=== PATIENT | female | born 1955 | race Caucasian/White ===

== ENCOUNTER 2018-10-12 16:40 | Observation (INO) | payer BC ==
[2018-10-12] MEDS ORDERED: SODIUM CHLORIDE 0.9% 1,000 ML IV ONE (17:01)
[2018-10-12] MEDS ORDERED: ONDANSETRON 4 MG/2 ML VIAL IVP STA (17:01)
[2018-10-12] MEDS ORDERED: HYDROmorphone 1 MG/ML CARPUJECT IVP STA (17:01)
--- NOTE | 2018-10-12 17:11 | ED Physician Documentation ---
PD HPI ABD PAIN - Stated complaint Stated Complaint: ABD PX - Chief complaint Chief Complaint: Abd Pain - History obtained from History obtained from: Patient - History of Present Illness Timing - onset: Yesterday Timing - duration: Days (2) Timing - details: Gradual onset Pain level max: 10 Pain level now: 10 Quality: Aching, Pain Location: RUQ Improved by: Other (nothing) Worsened by: Eating, Palpation Associated symptoms: Nausea, Vomiting. No: Diarrhea, Constipation, Melena, Hematochezia Similar symptoms before: Has not had sx before Recently seen: Not recently seen - Additional information Additional information: RUQ abd pain since yesterday. no fevers. no abd surgeries. no similar symptoms in the past. Review of Systems Ten Systems: 10 systems reviewed and negative Constitutional: denies: Fever, Chills Respiratory: denies: Cough GI: reports: Abdominal Pain, Nausea, Vomiting. denies: Diarrhea Skin: denies: Rash Musculoskeletal: denies: Neck pain, Back pain Neurologic: denies: Headache PD PAST MEDICAL HISTORY - Past Medical History Past Medical History: Yes Other Past Medical History: osteoporosis - Past Surgical History Past Surgical History: No - Present Medications Home Medications: Ambulatory Orders Medication Instructions Recorded Confirmed Alendronate [Fosamax] 70 mg PO OAW 10/12/18 Biotin 5,000 mcg PO DAILY 10/12/18 Calcium Citrate 200 mg PO DAILY 10/12/18 Cholecalciferol (Vitamin D3) 4,000 unit PO DAILY 10/12/18 [Vitamin D] Glucosamine/D3/Boswellia Rena 1 tab PO DAILY 10/12/18 [Osteo Bi-Flex Tablet] [place]-3/Dha/Epa/Fish Oil [Fish Oil 1,000 mg PO DAILY 10/12/18 1,000 mg Softgel] - Allergies Allergies/Adverse Reactions: Allergies Allergy/AdvReac Type Severity Reaction Status Date / Time Sulfa (Sulfonamide Allergy Hives Verified 10/12/18 16:52 Antibiotics) Penicillins AdvReac Unknown Verified 10/12/18 16:52 - Living Situation Living Situation: reports: With family Living Arrangement: reports: At home - Social History Does the pt have substance abuse?: No - Family History Family history: reports: Non contributory PD ED PE NORMAL - Vitals Vital signs reviewed: Yes - General General: Alert and oriented X 3, No acute distress, Well developed/nourished - HEENT HEENT: PERRL, Moist mucous membranes - Neck Neck: Supple, no meningeal sign - Cardiac Cardiac: RRR - Respiratory Respiratory: No respiratory distress, Clear bilaterally - Abdomen Abdomen: Soft, Non distended, Other - Back Back: No spinal TTP - Derm Derm: Warm and dry - Neuro Neuro: Alert and oriented X 3 - Psych Psych: Normal mood, Normal affect Results - Vitals Vitals: Vital Signs - 24 hr 10/12/18 16:49 Temperature 36.5 C Heart Rate 132 H Respiratory 18 Rate Blood Pressure 132/58 H O2 Saturation 95 Oxygen O2 Source Room air - Labs Labs: Laboratory Tests 10/12/18 10/12/18 17:50 17:50 WBC 27.9 H RBC 5.63 H Hgb 16.8 H Hct 49.4 H MCV 87.7 MCH 29.8 MCHC 34.0 RDW 14.2 Plt Count 168 MPV 10.2 Neut # (Auto) Not Reportable Lymph # (Auto) Not Reportable [place] # (Auto) Not Reportable Eos # (Auto) Not Reportable Baso # (Auto) Not Reportable Absolute Nucleated RBC Not Reportable Total Counted 100 Band Neuts % (Manual) 6 Abnorm Lymph % (Manual) 0 Nucleated RBC % Not Reportable Neutrophils # (Manual) 24.3 H Lymphocytes # (Manual) 3.1 Monocytes # (Manual) 0.6 Eosinophils # (Manual) 0.0 Basophils # (Manual) 0.0 Differential Comment MANUAL DIFFERENTIAL Manual Slide Review Indicated WBC Morphology NORMAL APPEARANCE Platelet Estimate NORMAL (130-450,000) Platelet Morphology NORMAL APPEARANCE RBC Morph Micro Appear NORMAL APPEARANCE Sodium 134 L Potassium 3.7 Chloride 99 L Carbon Dioxide 22 Anion Gap 13.0 BUN 27 H Creatinine 1.1 H Estimated GFR (MDRD) 50 L Glucose 142 H Calcium 8.9 Total Bilirubin 1.1 H AST 50 H ALT 59 Alkaline Phosphatase 64 Total Protein 9.0 H Albumin 4.6 Globulin 4.4 H Albumin/Globulin Ratio 1.0 Lipase 38 - Rads (name of study) RUQ US Radiology: Prelim report reviewed, EMP read contemporaneously, See rad report (Dilated gallbladder with thickened wall, multiple gallstones and sludge. These are findings raising suspicion for cholecystitis. However, ultrasound Peng's sign is negative, but can be false negative in the setting of pain medication or diabetes. ) PD MEDICAL DECISION MAKING - ED course Complexity details: reviewed results, re-evaluated patient, considered differential, d/w patient, d/w distributor sales consultant ED course: 63-year-old female presents to the emergency department with abdominal pain and vomiting. Found to have acute cholecystitis. Given IV fluids as well as cefoxitin given her penicillin allergy. Discussed the case with Dr. Yap, surgery on-call who came and evaluated the patient and will place in observation for rehydration, IV antibiotics and plan for the operating room in the morning. This document was made in part using voice recognition software. While efforts are made to proofread this document, sound alike and grammatical errors may occur. Departure - Departure Disposition: ED Place in Observation Clinical Impression: Acute cholecystitis Condition: Stable Discharge Date/Time: 10/12/18 20:05
--- NOTE | 2018-10-12 17:54 | Ultrasound Report ---
Reason: RUQ pain, vomiting Procedure Date: 10/12/2018 Accession Number: [id number] / [id number] Procedure: US - Abdomen Limited CPT Code: FULL RESULT: EXAM: ABDOMEN ULTRASOUND LIMITED, RUQ EXAM DATE: 10/12/2018 05:44 PM. CLINICAL HISTORY: RUQ pain, vomiting. COMPARISON: None. TECHNIQUE: Real-time scanning was performed with static images obtained. FINDINGS: Liver: Normal in size and echotexture. 12.7 cm. Main portal vein flow: Hepatopetal. Gallbladder: The gallbladder appears distended. There are multiple gallstones and gallbladder sludge. Gallbladder wall thickness is 8 mm. Negative ultrasound Peng's sign. Biliary System: CBD measures 3.9 mm. No intrahepatic or extrahepatic ductal dilatation. Other: Right kidney appears echogenic. No hydronephrosis of right kidney. Right kidney measures 9.3 cm in length. IMPRESSION: 1. Dilated gallbladder with thickened wall, multiple gallstones and sludge. These are findings raising suspicion for cholecystitis. However, ultrasound Peng's sign is negative, but can be false negative in the setting of pain medication or diabetes. RADIA
[2018-10-12 18:02] LABS: BASOPHILS % (AUTO) 0.4 %; HGB - HEMOGLOBIN 16.8 g/dL (12.0-16.0); LYMPHOCYTES % (AUTO) 6.4 %; MEAN CORPUSCULAR HEMOGLOBIN 29.8 pg (27.0-31.0); MEAN CORPUSCULAR VOLUME 87.7 fL (81.0-99.0); MEAN PLATELET VOLUME 10.2 fL (7.9-10.8); MONOCYTES % (AUTO) 7.1 %; NEUTROPHILS % (AUTO) 86.1 %; PLT - PLATELET COUNT 168 10^3/uL (130-450); RED BLOOD COUNT 5.63 10^6/uL (4.20-5.40); RED CELL DISTRIBUTION WIDTH 14.2 % (12.0-15.0); WHITE BLOOD COUNT 27.9 x10^3/uL (4.8-10.8)
[2018-10-12 18:06] LABS: ABNORMAL LYMPHS % (MANUAL) 0 %
[2018-10-12] MEDS ORDERED: cefOXitin 2 GM in SODIUM CHLORIDE 0.9% MINIBAG 100 ML IV STA (18:12)
[2018-10-12 18:19] LABS: BAND NEUTROPHILS % (MANUAL) 6 %; DIFFERENTIAL COMMENT MANUAL DIFFERENTIAL; LYMPHOCYTES # (MANUAL) 3.1 10^3/uL (1.5-3.5); LYMPHOCYTES % (MANUAL) 11 %; MONOCYTES # (MANUAL) 0.6 10^3/uL (0.0-1.0); NEUTROPHILS # (MANUAL) 24.3 10^3/uL (1.5-6.6); NEUTROPHILS % (MANUAL) 81 %; PLATELET ESTIMATE, MANUAL NORMAL (130-450,000) (NORMAL); PLATELET MORPHOLOGY NORMAL APPEARANCE (NORMAL); RBC MORPHOLOGY (MULTIPLE) NORMAL APPEARANCE (NORMAL)
[2018-10-12 18:20] LABS: ALBUMIN 4.6 g/dL (3.2-5.5); BILIRUBIN,TOTAL 1.1 mg/dL (0.2-1.0); CALCIUM 8.9 mg/dL (8.5-10.3); CREATININE 1.1 mg/dL (0.4-1.0)
[2018-10-12] MEDS ORDERED: ONDANSETRON 4 MG/2 ML VIAL IVP PRN (19:10)
[2018-10-12] MEDS ORDERED: ACETAMINOPHEN 1,000 MG/100 ML 100 ML IV PRN (19:10)
[2018-10-12] MEDS ORDERED: MORPHINE 2 MG/ML CARPUJECT IVP PRN (19:10)
--- NOTE | 2018-10-12 19:32 | CONSULTATION NOTE ---
Referring Provider Name of Referring Provider:: Dr. Wills Consult Date: 10/12/18 Chief Complaint - Chief Complaint Chief Complaint: abd pain History of Present Illness - Admitted From Admitted From:: ER - History Obtained From Records Reviewed: yes History obtained from: pt, records Exam Limitations: none - History of Present Illness HPI Comment/Other: 63 yo female with abrupt onset of mid epigastric pain, N/V of nonbloody material yesterday morning. Sx persisted until yesterday evening when pain became localized to the RUQ, was sharp and stabbing in nature and exacerbated by movement and deep breathing. Today the RUQ pain has persisted but there has been no further N/V. No fever/chills, change in bowel habits, melena, BRBPR, jaundice or acholic stools, hx previous similar sx. She has a hx of chronic food intolerances of gluten and lactose. She reports a remote hx of ulcerative colitis which resolved with a gluten free and lactose free diet, per pt. A colonoscopy earlier this year was reportedly nl. She has a FH gallbladder disease in her mother and sister. No recent wt changes or hx of hepatitis or jaundice. She reports minimal oral intake today and came in for evaluation this evening due to no improvement in her sx. Evaluation in the ER included an US showing a dilated gall bladder with stones and sludge, a thickened gallbladder wall, and nl bile ducts; sono Peng's sign was reportedly neg. No hx heartburn, dysphagia or PUD. NSAID use: occasional ibuprofen. Surgical consultation was requested. History - Past Medical History Cardiovascular: reports: None Respiratory: reports: None Neuro: reports: None Endocrine/Autoimmune: reports: Other (hx mild thrombocytopenia) GI: reports: Ulcerative colitis DISABILITY MANAGER: reports: None : reports: None Psych: reports: None Musculoskeletal: reports: Other (occasional tendonitis) MRSA Hx?: No Other Past Medical History: osteoporosis - Past Surgical History /DISABILITY MANAGER: reports: Tubal ligation, Other (breast biopsy x 2) HEENT: reports: Tonsil/Adenoidectomy - Family & Social History Family History Comment/Other: + gallbladder disease in mother and sister Living arrangement: At home Living Situation: Alone (daughter lives nearby; ), With family Social History Notes: moved from [place] to [place] this summer - Substance History Use: Uses substance without health or social issues: NONE Meds/Allgy - Home Medications Home Medications: Ambulatory Orders Medication Instructions Recorded Confirmed Alendronate [Fosamax] 70 mg PO OAW 10/12/18 Biotin 5,000 mcg PO DAILY 10/12/18 Calcium Citrate 200 mg PO DAILY 10/12/18 Cholecalciferol (Vitamin D3) 4,000 unit PO DAILY 10/12/18 [Vitamin D] Glucosamine/D3/Boswellia Rena 1 tab PO DAILY 10/12/18 [Osteo Bi-Flex Tablet] [place]-3/Dha/Epa/Fish Oil [Fish Oil 1,000 mg PO DAILY 10/12/18 1,000 mg Softgel] - Allergies Allergies/Adverse Reactions: Allergies Allergy/AdvReac Type Severity Reaction Status Date / Time Sulfa (Sulfonamide Allergy Hives Verified 10/12/18 16:52 Antibiotics) Penicillins AdvReac Unknown Verified 10/12/18 16:52 Review of Systems - Constitutional Constitutional: reports: Poor appetite. denies: Fever, Chills, Weakness, Weight gain, Weight loss - Cardiovascular Cariovascular: denies: Irregular heart rate, Palpitations, Chest pain - Respiratory Respiratory: denies: Cough - Gastrointestinal Gastrointestinal: reports: Abdominal pain, Nausea, Vomiting, Poor appetite. denies: Abdominal distention, Constipation, Diarrhea, Change in bowel habits, Black stools, Bloody stools, Tomer blood emesis, Coffee grounds emesis, Reflux/heartburn - Genitourinary Genitourinary: denies: Dysuria - Musculoskeletal Musculoskeletal: denies: Back pain - Hematologic/Lymphatic Hematologic/Lymphatic: denies: Blood clots, Bleeding tendencies - All Other Systems All Other Systems: reports: Reviewed and negative Exam - Vital Signs Reviewed Vital Signs: Yes Vital Signs: Vital Signs x48h Temp Pulse Resp BP Pulse Ox 10/12/18 19:23 94 18 118/73 94 10/12/18 16:49 36.5 C 132 H 18 132/58 H 95 - Physical Exam General Appearance: positive: Alert, Moderate distress Eyes Bilateral: positive: Conjunctivae nml, No scleral icterus ENT: positive: Dry mucous membranes Neck: positive: Nml inspection, Thyroid nml, No JVD. negative: Lymphadenopathy (R), Lymphadenopathy (L) Respiratory: positive: Chest non-tender, No respiratory distress, Rales (dry rales in right base) Cardiovascular: positive: Regular rate & rhythm, No murmur, No gallop Abdomen: positive: Nml bowel sounds, No distention, Guarding (RUQ tenderness/guarding and +Peng's sign). negative: Hepatomegaly, Splenomegaly Skin: positive: Color nml, No rash, Warm, Dry Extremities: positive: Nml appearance, No pedal edema. negative: Calf tenderness Neurologic/Psychiatric: positive: Oriented x3 Conclusion/Plan - Diagnosis Diagnosis: Acute calculous cholecystitis. Moderate volume depletion due to above - Plan Plan: Admission, IVF, broad spectrum parenteral antibiotic therapy; lap kristie in am; PAR conference with pt, including risks of bleeding, infection, and bile duct injury discussed and consent obtained. - Lab Results Lab results reviewed: Yes Fish Bones: 10/12/18 17:50 10/12/18 17:50 Other Lab Results: LFT's nl ex total bili 1.1 and AST 50; lipase nl - Diagnostic Imaging Results Diagnostic Imaging Results: positive: Final report reviewed Diagnostic Imaging Results Comments: See HPI
[2018-10-12] MEDS ORDERED: LACTATED RINGERS 1,000 ML IV SCH (20:00)
[2018-10-12] MEDS: ENOXAPARIN 40 MG/0.4 ML SYRINGE SUBQ SCH (20:32)
[2018-10-12] MEDS: CIPROFLOXACIN 400 MG/200 ML 200 ML IV SCH (20:33)
[2018-10-12] MEDS ORDERED: metroNIDAZOLE 500 MG/100 ML 500 MG/100 ML BAG IV SCH (21:00)
[2018-10-12 21:02] LABS: BILIRUBIN,URINE NEGATIVE (NEGATIVE); CLARITY,URINE HAZY (CLEAR); GLUCOSE, URINE (UA) NEGATIVE (NEGATIVE); KETONES,URINE (UA) TRACE mg/dL (NEGATIVE); LEUKOCYTE ESTERASE, URINE SMALL (NEGATIVE); NITRITE,URINE NEGATIVE (NEGATIVE); OCCULT BLOOD,URINE MODERATE (NEGATIVE); PH,URINE 5.5 PH (5.0-7.5); PROTEIN,URINE >=300 mg/dL (NEGATIVE); UROBILINOGEN,URINE 0.2 (NORMAL) E.U./dL (NORMAL)
[2018-10-12] MEDS: KETOROLAC 15 MG/ML VIAL IVP PRN (21:02)
[2018-10-12 21:25] LABS: SQUAMOUS EPITHELIAL CELL,UR MANY Squamous (<= Few)
[2018-10-12 21:26] LABS: AMORPHOUS SEDIMENT,UR Few /LPF; BACTERIA,URINE Rare /HPF (None Seen); CASTS, URINE 11-25 Hyaline Casts /LPF
[2018-10-12] MEDS: metroNIDAZOLE 500 MG/100 ML 500 MG/100 ML BAG IV SCH (21:57)
[2018-10-13] MEDS: SODIUM CHLORIDE FLUSH 0.9% 10 ML SYRINGE IVP SCH ×3 (00:02→16:41)
[2018-10-13] MEDS: metroNIDAZOLE 500 MG/100 ML 500 MG/100 ML BAG IV SCH ×4 (04:26→22:56)
[2018-10-13] MEDS: KETOROLAC 15 MG/ML VIAL IVP PRN (04:26)
[2018-10-13 05:28] LABS: BASOPHILS # (AUTO) 0.1 10^3/uL (0.0-0.1); BASOPHILS % (AUTO) 0.6 %; HGB - HEMOGLOBIN 13.7 g/dL (12.0-16.0); LYMPHOCYTES # (AUTO) 1.9 10^3/uL (1.5-3.5); MEAN CORPUSCULAR HEMOGLOBIN 29.3 pg (27.0-31.0); MEAN CORPUSCULAR HGB CONC 32.7 g/dL (32.0-36.0); MEAN CORPUSCULAR VOLUME 89.6 fL (81.0-99.0); MEAN PLATELET VOLUME 10.8 fL (7.9-10.8); MONOCYTES # (AUTO) 1.2 10^3/uL (0.0-1.0); NEUTROPHILS # (AUTO) 12.3 10^3/uL (1.5-6.6); NEUTROPHILS % (AUTO) 79.4 %; PLT - PLATELET COUNT 128 10^3/uL (130-450); RED BLOOD COUNT 4.67 10^6/uL (4.20-5.40); RED CELL DISTRIBUTION WIDTH 14.2 % (12.0-15.0); WHITE BLOOD COUNT 15.5 x10^3/uL (4.8-10.8)
[2018-10-13 05:33] LABS: CALCIUM 7.7 mg/dL (8.5-10.3); CREATININE 0.9 mg/dL (0.4-1.0)
--- NOTE | 2018-10-13 06:58 | PROVIDER PROGRESS NOTE ---
Subjective - Prog Note Date Prog Note Date: 10/13/18 Prog Note Time: 06:54 - Subjective Pt reports feeling: Improved (pain improved but persists; no n/v; voiding well) Objective - Vital Signs/Intake & Output Reviewed Vital Signs: Yes Vital Signs: Vital Signs x48h Temp Pulse Resp BP Pulse Ox 10/13/18 05:02 17 102/57 L 10/13/18 04:38 36.7 C 75 16 89/53 L 93 10/13/18 00:16 36.6 C 80 16 98/57 L 96 Intake & Output: Intake & Output 10/10/18 10/11/18 10/12/18 10/13/18 23:59 23:59 23:59 23:59 Intake Total 1420 Output Total 200 325 Balance 1220 -325 - Objective General Appearance: positive: Alert, Mild distress Eyes Bilateral: positive: No scleral icterus ENT: positive: No signs of dehydration Neck: positive: No JVD Respiratory: positive: No respiratory distress, Breath sounds nml. negative: Wheezes, Rales, Rhonchi Cardiovascular: positive: Regular rate & rhythm, No murmur, No gallop Abdomen: positive: Tenderness (RUQ with + Peng's sign; somewhat less tender than last night) Skin: positive: Color nml, No rash, Warm, Dry Extremities: positive: No pedal edema. negative: Calf tenderness Neurologic/Psychiatric: positive: Oriented x3 - Lab Results Fish Bones: 10/13/18 05:05 10/13/18 05:05 Other Labs: Lab Results x24hrs 10/13/18 10/13/18 10/12/18 Range/Units 05:05 05:05 20:50 WBC 15.5 H (4.8-10.8) x10^3/uL RBC 4.67 (4.20-5.40) 10^6/uL Hgb 13.7 (12.0-16.0) g/dL Hct 41.9 (37.0-47.0) % MCV 89.6 (81.0-99.0) fL MCH 29.3 (27.0-31.0) pg MCHC 32.7 (32.0-36.0) g/dL RDW 14.2 (12.0-15.0) % Plt Count 128 L (130-450) 10^3/uL MPV 10.8 (7.9-10.8) fL Neut # (Auto) 12.3 H Lymph # (Auto) 1.9 [place] # (Auto) 1.2 H Eos # (Auto) 0.0 Baso # (Auto) 0.1 Absolute Nucleated RBC 0.00 Total Counted Band Neuts % (Manual) (0 - 10) % Abnorm Lymph % (Manual) % Nucleated RBC % 0.0 Neutrophils # (Manual) (1.5-6.6) 10^3/uL Lymphocytes # (Manual) (1.5-3.5) 10^3/uL Monocytes # (Manual) (0.0-1.0) 10^3/uL Eosinophils # (Manual) (0-0.7) 10^3/uL Basophils # (Manual) (0-0.1) 10^3/uL Differential Comment Manual Slide Review WBC Morphology (NORMAL) Platelet Estimate (NORMAL) Platelet Morphology (NORMAL) RBC Morph Micro Appear (NORMAL) Sodium 135 (135-145) mmol/L Potassium 3.5 (3.5-5.0) mmol/L Chloride 102 (101-111) mmol/L Carbon Dioxide 24 (21-32) mmol/L Anion Gap 9.0 (6-13) BUN 27 H (6-20) mg/dL Creatinine 0.9 (0.4-1.0) mg/dL Estimated GFR (MDRD) 63 L (>89) Glucose 108 H (70-100) mg/dL Calcium 7.7 L (8.5-10.3) mg/dL Total Bilirubin (0.2-1.0) mg/dL AST (10-42) IU/L ALT (10-60) IU/L Alkaline Phosphatase (42-121) IU/L Total Protein (6.7-8.2) g/dL Albumin (3.2-5.5) g/dL Globulin (2.1-4.2) g/dL Albumin/Globulin Ratio (1.0-2.2) Lipase (22-51) U/L Urine Color YELLOW Urine Clarity HAZY (CLEAR) Urine pH 5.5 (5.0-7.5) PH Ur Specific [place] >=1.030 H (1.002-1.030) Urine Protein >=300 H (NEGATIVE) mg/dL Urine Glucose (UA) NEGATIVE (NEGATIVE) mg/dL Urine Ketones TRACE (NEGATIVE) mg/dL Urine Occult Blood MODERATE H (NEGATIVE) Urine Nitrite NEGATIVE (NEGATIVE) Urine Bilirubin NEGATIVE (NEGATIVE) Urine Urobilinogen 0.2 (NORMAL) (NORMAL) E.U./dL Ur Leukocyte Esterase SMALL H (NEGATIVE) Urine RBC 6-10 H (0-5) /HPF Urine WBC 11-25 H (0-5) /HPF Ur Squamous Epith Cells MANY Squamous H (<= Few) Amorphous Sediment Few /LPF Urine Bacteria Rare (None Seen) /HPF Urine Casts 11-25 Hyaline Casts /LPF Ur Microscopic Review INDICATED Urine Culture Comments NOT INDICATED 10/12/18 10/12/18 Range/Units 17:50 17:50 WBC 27.9 H (4.8-10.8) x10^3/uL RBC 5.63 H (4.20-5.40) 10^6/uL Hgb 16.8 H (12.0-16.0) g/dL Hct 49.4 H (37.0-47.0) % MCV 87.7 (81.0-99.0) fL MCH 29.8 (27.0-31.0) pg MCHC 34.0 (32.0-36.0) g/dL RDW 14.2 (12.0-15.0) % Plt Count 168 (130-450) 10^3/uL MPV 10.2 (7.9-10.8) fL Neut # (Auto) Not Reportable Lymph # (Auto) Not Reportable [place] # (Auto) Not Reportable Eos # (Auto) Not Reportable Baso # (Auto) Not Reportable Absolute Nucleated RBC Not Reportable Total Counted 100 Band Neuts % (Manual) 6 (0 - 10) % Abnorm Lymph % (Manual) 0 % Nucleated RBC % Not Reportable Neutrophils # (Manual) 24.3 H (1.5-6.6) 10^3/uL Lymphocytes # (Manual) 3.1 (1.5-3.5) 10^3/uL Monocytes # (Manual) 0.6 (0.0-1.0) 10^3/uL Eosinophils # (Manual) 0.0 (0-0.7) 10^3/uL Basophils # (Manual) 0.0 (0-0.1) 10^3/uL Differential Comment MANUAL DIFFERENTIAL Manual Slide Review Indicated WBC Morphology NORMAL APPEARANCE (NORMAL) Platelet Estimate NORMAL (130-450,000) (NORMAL) Platelet Morphology NORMAL APPEARANCE (NORMAL) RBC Morph Micro Appear NORMAL APPEARANCE (NORMAL) Sodium 134 L (135-145) mmol/L Potassium 3.7 (3.5-5.0) mmol/L Chloride 99 L (101-111) mmol/L Carbon Dioxide 22 (21-32) mmol/L Anion Gap 13.0 (6-13) BUN 27 H (6-20) mg/dL Creatinine 1.1 H (0.4-1.0) mg/dL Estimated GFR (MDRD) 50 L (>89) Glucose 142 H (70-100) mg/dL Calcium 8.9 (8.5-10.3) mg/dL Total Bilirubin 1.1 H (0.2-1.0) mg/dL AST 50 H (10-42) IU/L ALT 59 (10-60) IU/L Alkaline Phosphatase 64 (42-121) IU/L Total Protein 9.0 H (6.7-8.2) g/dL Albumin 4.6 (3.2-5.5) g/dL Globulin 4.4 H (2.1-4.2) g/dL Albumin/Globulin Ratio 1.0 (1.0-2.2) Lipase 38 (22-51) U/L Urine Color Urine Clarity (CLEAR) Urine pH (5.0-7.5) PH Ur Specific [place] (1.002-1.030) Urine Protein (NEGATIVE) mg/dL Urine Glucose (UA) (NEGATIVE) mg/dL Urine Ketones (NEGATIVE) mg/dL Urine Occult Blood (NEGATIVE) Urine Nitrite (NEGATIVE) Urine Bilirubin (NEGATIVE) Urine Urobilinogen (NORMAL) E.U./dL Ur Leukocyte Esterase (NEGATIVE) Urine RBC (0-5) /HPF Urine WBC (0-5) /HPF Ur Squamous Epith Cells (<= Few) Amorphous Sediment /LPF Urine Bacteria (None Seen) /HPF Urine Casts /LPF Ur Microscopic Review Urine Culture Comments ABX Reporting Has patient been on IV antibiotics over the past 48 hours?: No Assessment/Plan - Problem List (1) Acute cholecystitis Impression: Clinically improving; plan: danielle flowers this am.
[2018-10-13 07:27] LABS: ALBUMIN 3.2 g/dL (3.2-5.5); BILIRUBIN,TOTAL 1.6 mg/dL (0.2-1.0); CALCIUM 7.6 mg/dL (8.5-10.3); TOTAL PROTEIN 6.5 g/dL (6.7-8.2)
[2018-10-13] MEDS ORDERED: BUPIVACAINE 0.5%-EPI 1:200000 PF 30 ML VIAL ONE (07:33)
[2018-10-13] MEDS: ENOXAPARIN 40 MG/0.4 ML SYRINGE SUBQ SCH (07:43)
--- NOTE | 2018-10-13 08:09 | ANESTHESIA ---
Pre-Anesthesia VS, & Labs - Diagnosis Diagnosis Acute calculous cholecystitis Moderate volume depletion due to above - Procedure Lap cholecystectomy Vital Signs: Temp Pulse Resp BP Pulse Ox 36.7 C 75 17 102/57 L 93 10/13/18 04:38 10/13/18 04:38 10/13/18 05:02 10/13/18 05:02 10/13/18 04:38 Height 5 ft 4 in Weight (kg) 63 kg Body Mass Index 23.8 - Is Patient ?: No - Lab Results Current Lab Results: Laboratory Tests 10/13/18 07:10: Sodium 134 L, Potassium 3.8, Chloride 101, Carbon Dioxide 26, Anion Gap 7.0, BUN 27 H, Creatinine 1.0, Estimated GFR (MDRD) 56 L, Glucose 105 H, Calcium 7.6 L, Total Bilirubin 1.6 H, AST 81 H, ALT 73 H, Alkaline Phosph atase 62, Total Protein 6.5 L, Albumin 3.2, Globulin 3.3, Albumin/Globulin Ratio 1.0 10/13/18 05:05: Sodium 135, Potassium 3.5, Chloride 102, Carbon Dioxide 24, Anion Gap 9.0, BUN 27 H, Creatinine 0.9, Estimated GFR (MDRD) 63 L, Glucose 108 H, Calcium 7.7 L 10/13/18 05:05: WBC 15.5 H, RBC 4.67, Hgb 13.7, Hct 41.9, MCV 89.6, MCH 29.3, MCHC 32.7, RDW 14.2, Plt Count 128 L, MPV 10.8, Neut # (Auto) 12.3 H, Lymph # (Auto) 1.9, [place] # (Auto) 1.2 H, Eos # (Auto) 0.0, Baso # (Auto) 0.1, Absolute Nucleated RBC 0.00, Nucleated RBC % 0.0 10/12/18 17:50: Sodium 134 L, Potassium 3.7, Chloride 99 L, Carbon Dioxide 22, Anion Gap 13.0, BUN 27 H, Creatinine 1.1 H, Estimated GFR (MDRD) 50 L, Glucose 142 H, Calcium 8.9, Total Bilirubin 1.1 H, AST 50 H, ALT 59, Alkaline Phosphatase 64, Total Protein 9.0 H, Albumin 4.6, Globulin 4.4 H, Albumin/Globulin Ratio 1.0, Lipase 38 10/12/18 17:50: WBC 27.9 H, RBC 5.63 H, Hgb 16.8 H, Hct 49.4 H, MCV 87.7, MCH 29.8, MCHC 34.0, RDW 14.2, Plt Count 168, MPV 10.2, Neut # (Auto) Not Reportable, Lymph # (Auto) Not Reportable, [place] # (Auto) Not Reportable, Eos # (Auto) Not Reportable, Baso # (Auto) Not Reportable, Absolute Nucleated RBC Not Reportable, Total Counted 100, Band Neuts % (Manual) 6, Abnorm Lymph % (Manual) 0, Nucleated RBC % Not Reportable, Neutrophils # (Manual) 24.3 H, Lymphocytes # (Manual) 3.1, Monocytes # (Manual) 0.6, Eosinophils # (Manual) 0.0, Basophils # (Manual) 0.0, Differential Comment MANUAL DIFFERENTIAL, Manual Slide Review Indicated, WBC Morphology NORMAL APPEARANCE, Platelet Estimate NORMAL (130- 450,000), Platelet Morphology NORMAL APPEARANCE, RBC Morph Micro Appear NORMAL APPEARANCE Fish Bones: 10/13/18 05:05 10/13/18 07:10 Home Medications and Allergies Home Medications: Ambulatory Orders Alendronate [Fosamax] 70 mg PO OAW 10/12/18 Biotin 5,000 mcg PO DAILY 10/12/18 Calcium Citrate 200 mg PO DAILY 10/12/18 Cholecalciferol (Vitamin D3) [Vitamin D] 4,000 unit PO DAILY 10/12/18 Glucosamine/D3/Boswellia Rena [Osteo Bi-Flex Tablet] 1 tab PO DAILY 10/12/18 [place]-3/Dha/Epa/Fish Oil [Fish Oil 1,000 mg Softgel] 1,000 mg PO DAILY 10/12/18 Active Medications Enoxaparin Sodium (Lovenox) 40 mg SUBQ DAILY AUBREY Last Admin: 10/13/18 07:43 Dose: Not Given Ciprofloxacin (Cipro 400 Mg/200 Ml) 200 mls @ 200 mls/hr IV Q12H [facility] Last Infusion: 10/12/18 21:33 Dose: Infused Lactated Ringer's (Lr) 1,000 mls @ 125 mls/hr IV .Q8H [facility] Last Admin: 10/12/18 23:58 Dose: 125 mls/hr Acetaminophen (Ofirmev) 100 mls @ 400 mls/hr IV Q6HR PRN PRN Reason: PAIN Last Infusion: 10/12/18 20:41 Dose: Infused Metronidazole (Flagyl 500 Mg/100 Ml) 500 mg in 100 mls @ 100 mls/hr IV Q6H [facility] Last Infusion: 10/13/18 06:58 Dose: Infused Ketorolac Tromethamine (Toradol Inj (15mg)) 15 mg IVP Q6HR PRN PRN Reason: PAIN Stop: 10/17/18 19:09 Last Admin: 10/13/18 04:26 Dose: 15 mg Morphine Sulfate (Morphine (Carpuject)) 2 mg IVP Q2HR PRN PRN Reason: PAIN Ondansetron HCl (Zofran Inj) 4 mg IVP Q6H PRN PRN Reason: Nausea / Vomiting Sodium Chloride (Normal Saline Flush 0.9%) 10 ml IVP 0100,0900,1700 [facility] Last Admin: 10/13/18 07:43 Dose: Not Given Sodium Chloride (Normal Saline Flush 0.9%) 10 ml IVP PRN PRN PRN Reason: NEEDED PER PROVIDER ORDERS Alendronate [Fosamax] 70 mg PO OAW 10/12/18 Biotin 5,000 mcg PO DAILY 10/12/18 Calcium Citrate 200 mg PO DAILY 10/12/18 Cholecalciferol (Vitamin D3) [Vitamin D] 4,000 unit PO DAILY 10/12/18 Glucosamine/D3/Boswellia Rena [Osteo Bi-Flex Tablet] 1 tab PO DAILY 10/12/18 [place]-3/Dha/Epa/Fish Oil [Fish Oil 1,000 mg Softgel] 1,000 mg PO DAILY 10/12/18 Allergies/Adverse Reactions: Allergies Allergy/AdvReac Type Severity Reaction Status Date / Time Sulfa (Sulfonamide Allergy Hives Verified 10/12/18 16:52 Antibiotics) Penicillins AdvReac Unknown Verified 10/12/18 16:52 Anes History & Medical History - Anesthetic History Anesthesia Complications: reports: No previous complications Family history of Anesthesia Complications: Denies Family history of Malignant Hyperthermia: Denies - Medical History Cardiovascular: reports: None Pulmonary: reports: None Gastrointestinal: reports: Ulcerative colitis Urinary: reports: None Neuro: reports: None Musculoskeletal: reports: Other Endocrine/Autoimmune: reports: Other Smoking Status: Never smoker Other Past Medical History: osteoporosis - Surgical History Eyes Ears Nose Throat (EENT): Tonsil/Adenoidectomy Gynecologic: Tubal ligation, Other Results - EKG Results EKG Comparison: Reviewed EKG (ST@115 with LVH poss old ant and inf infarcts, both old) Exam General: Alert, Oriented x3 Dental: WNL Mouth Openin Fingerbreadth Neck Mobility: Normal Mallampati classification: II Thyromental Distance: 4-6 cm Respiratory: Lungs clear, Normal breath sounds Cardiovascular: Regular rate Neurological: Normal speech Mental/Cognitive Status: Alert/Oriented X3 Cognitive Status: Within normal limits Plan Anesthesia Type: General Consent for Procedure(s) Verified and Reviewed: Yes Code Status: Attempt Resuscitation ASA classification: 2-Mild systemic disease Is this case an emergency?: No
[2018-10-13] MEDS: CIPROFLOXACIN 400 MG/200 ML 200 ML IV SCH ×2 (08:17→20:32)
[2018-10-13] MEDS ORDERED: IOTHALAMATE MEGLUMINE 50 ML VIAL ONE (09:14)
[2018-10-13] MEDS ORDERED: LACTATED RINGERS 1,000 ML IV ONE ×2 (09:31→10:20)
[2018-10-13] MEDS ORDERED: BUPIVACAINE 0.5%-EPI 1:200000 PF 10 ML VIAL SUBQ ONE (09:31)
[2018-10-13] MEDS ORDERED: PROPOFOL 200 MG/20 ML VIAL IVP ONE (09:48)
[2018-10-13] MEDS ORDERED: fentaNYL 100 MCG/2 ML VIAL IVP ONE (09:48)
[2018-10-13] MEDS ORDERED: LIDOCAINE-MPF 2% 5 ML VIAL IM ONE (09:48)
[2018-10-13] MEDS ORDERED: ePHEDrine 50 MG/ML AMP IVP ONE (09:48)
[2018-10-13] MEDS ORDERED: ONDANSETRON 4 MG/2 ML VIAL IVP ONE (09:48)
[2018-10-13] MEDS ORDERED: NEOSTIGMINE 1 MG/1 ML 10 ML MDV IVP ONE (09:48)
[2018-10-13] MEDS ORDERED: SODIUM CHLORIDE 0.9% 10 ML VIAL IV ONE (09:48)
[2018-10-13] MEDS ORDERED: ROCURONIUM 50 MG/5 ML VIAL IVP ONE (09:48)
[2018-10-13] MEDS ORDERED: KETOROLAC 30 MG/ML VIAL IVP ONE (09:48)
[2018-10-13] MEDS ORDERED: GLYCOPYRROLATE 1 MG/5 ML VIAL IVP ONE (09:48)
[2018-10-13] MEDS ORDERED: DEXAMETHASONE 4 MG/ML VIAL IVP ONE (09:48)
[2018-10-13] MEDS ORDERED: MIDAZOLAM 2 MG/2 ML VIAL IVP ONE (09:48)
--- NOTE | 2018-10-13 10:40 | OPERATIVE REPORT ---
Operative Report - General Admit Date: 10/12/18 Procedure Date: 10/13/18 Planned Procedure: Laparoscopic cholecystectomy Pre-Op Diagnosis: Acute calculous cholecystitis Procedure Performed: Laparoscopic cholecystectomy Post Op Diagnosis: Acute gangrenous calculous cholecystitis - Procedure Note Primary Surgeon: Denzel Yap MD [facility] Anesthesia Provider: Immanuel Becerra CRNA Anesthesia Technique: General ET tube Pathology: gallbladder and contents Estimated Blood Loss (mL): 10 Complications: None - Other Other Information/Narrative: After informed consent pt was taken to the OR and placed under general endotracheal anesthesia in the supine position. Preop preparation included administration of therapeutic doses of ciprofloxacin and metronidazole. Sequential calf compression boots were applied. Her abdomen was prepped with Cloroprep and draped in the usual sterile fashion. A transverse incision was made along the inferior edge of the umbilicus and carried down through the layers of the abdominal wall until the peritoneum was entered sharply. A 10 mm Hasan cannula was inserted and pneumoperitoneum achieved with carbon dioxide. 3 5 mm ports were placed in the right upper quadrant. Instruments were passed and the gallbladder was exposed, seen to be gangrenous with fibrinous exudate adjacent to the gallbladder and with extensive pericholecystic adhesions to the omentum. These were lysed bluntly, the gallbladder was aspirated and 20 ml of crankcase oil appearing fluid was removed and sent for grm stain and cultures, aerobic and anaerobic. The gallbladder was grasped and retracted exposing the cystic triangle of Calot. These region was dissected, isolating the cystic duct and artery adjacent to the gallbladder neck. The critical view of safety was achieved. The cystic artery was doubly clipped proximally and distally and divided between. The cystic duct was clipped adjacent to the gallbladder, incised distal to the clip and attempts were made to insert a Taut cholangiogram, but were unsuccessful. The cystic duct was triply clipped distal to the incision and the cystic duct was then completely divided between the two sets of clips. The gallbladder was excised intact from the liver bed using electrocautery for dissection and hemostasis. It was placed in an organ retrieval bag, extracted, opened on a side table, then sent to pathology. The cystic duct was of normal caliber, the visualized portions of the liver, stomach and duodenum were nl. The gallbadder appeared thin walled, greenish in color in some areas and to contain approximately 500 tiny stone less than 1 mm in size. After hemostasis had been achieved, the right upper quadrant was copiously irrigated with sterile saline, then instruments and cannulas were removed under direct vision, pneumoperitoneum was allowed to escape, and the incisions were closed in layers using 0 Vicryl for the midline fascia at the umbilicus, and 4-0 Monocryl for subcuticular skin closures at all the sites, followed by DermaBond. Anesthesia was terminated and the patient transferred to the [facility] in satisfactory condition. Sponge, instrument, and needle counts were correct x 2 and no drains were used.
[2018-10-13] MEDS ORDERED: KETOROLAC 15 MG/ML VIAL IVP PRN (10:43)
[2018-10-13] MEDS ORDERED: LACTATED RINGERS 1,000 ML IV SCH (10:44)
[2018-10-14] MEDS: metroNIDAZOLE 500 MG/100 ML 500 MG/100 ML BAG IV SCH (04:04)
[2018-10-14] MEDS: SODIUM CHLORIDE FLUSH 0.9% 10 ML SYRINGE IVP SCH ×2 (04:11→09:21)
[2018-10-14] MEDS: SODIUM CHLORIDE FLUSH 0.9% 10 ML SYRINGE IVP PRN ×2 (04:20→05:15)
[2018-10-14 05:01] LABS: BASOPHILS % (AUTO) 0.1 %; HGB - HEMOGLOBIN 11.9 g/dL (12.0-16.0); LYMPHOCYTES % (AUTO) 7.2 %; MEAN CORPUSCULAR HEMOGLOBIN 30.2 pg (27.0-31.0); MEAN CORPUSCULAR HGB CONC 33.6 g/dL (32.0-36.0); MEAN CORPUSCULAR VOLUME 89.7 fL (81.0-99.0); MEAN PLATELET VOLUME 10.7 fL (7.9-10.8); MONOCYTES # (AUTO) 0.7 10^3/uL (0.0-1.0); MONOCYTES % (AUTO) 5.1 %; NEUTROPHILS % (AUTO) 87.6 %; PLT - PLATELET COUNT 114 10^3/uL (130-450); RED BLOOD COUNT 3.96 10^6/uL (4.20-5.40); RED CELL DISTRIBUTION WIDTH 14.3 % (12.0-15.0); WHITE BLOOD COUNT 13.7 x10^3/uL (4.8-10.8)
[2018-10-14 05:17] LABS: ALBUMIN 2.9 g/dL (3.2-5.5); ALBUMIN/GLOBULIN RATIO 0.9 (1.0-2.2); BILIRUBIN,TOTAL 0.8 mg/dL (0.2-1.0); CALCIUM 7.9 mg/dL (8.5-10.3); CREATININE 0.7 mg/dL (0.4-1.0); TOTAL PROTEIN 6.1 g/dL (6.7-8.2)
[2018-10-14 07:40] VITALS: BP 106/54
[2018-10-14] MEDS: CIPROFLOXACIN 400 MG/200 ML 200 ML IV SCH (09:20)
[2018-10-14] MEDS: ENOXAPARIN 40 MG/0.4 ML SYRINGE SUBQ SCH (09:21)
--- NOTE | 2018-10-14 09:40 | PROVIDER PROGRESS NOTE ---
Subjective - General Admit Date: 10/12/18 Procedure Date: 10/13/18 Post Op Days: 1 Procedure Performed: lap kristie - Review of Systems Wound/Incisions: positive: Healing well, No drainage General: positive: No symptoms (minimal incisional discomfort, preop pain has resolved; tolerating regular diet, ambulating, voiding well.). negative: Fever, Chills Pulmonary: positive: No symptoms Cardiovascular: positive: No symptoms Gastrointestinal: positive: No symptoms Psychiatric: positive: No symptoms Objective - Patient Data Reviewed Vital Signs: Yes Vital Signs: Vital Signs x48h Temp Pulse Resp BP Pulse Ox 10/14/18 07:36 36.7 C 77 14 106/54 L 92 10/14/18 04:07 36.7 C 70 16 114/54 L 92 Weight: Weight 10/12/18 10/13/18 10/14/18 23:59 23:59 23:59 Weight (kg) 63 kg Intake & Output: Intake and Output Totals x24h 10/12/18 10/13/18 10/14/18 23:59 23:59 23:59 Intake Total 1420 2962.50 340 Output Total 200 1175 425 Balance 1220 1787.50 -85 - Lab Results Lab Results: 10/14/18 04:45 10/14/18 04:45 Other Lab Results: Lab Results x24hrs 10/14/18 10/14/18 Range/Units 04:45 04:45 WBC 13.7 H (4.8-10.8) x10^3/uL RBC 3.96 L (4.20-5.40) 10^6/uL Hgb 11.9 L (12.0-16.0) g/dL Hct 35.5 L (37.0-47.0) % MCV 89.7 (81.0-99.0) fL MCH 30.2 (27.0-31.0) pg MCHC 33.6 (32.0-36.0) g/dL RDW 14.3 (12.0-15.0) % Plt Count 114 L (130-450) 10^3/uL MPV 10.7 (7.9-10.8) fL Neut # (Auto) 12.0 H (1.5-6.6) 10^3/uL Lymph # (Auto) 1.0 L (1.5-3.5) 10^3/uL Gilmer # (Auto) 0.7 (0.0-1.0) 10^3/uL Eos # (Auto) 0.0 (0.0-0.7) 10^3/uL Baso # (Auto) 0.0 (0.0-0.1) 10^3/uL Absolute Nucleated RBC 0.00 x10^3/uL Nucleated RBC % 0.0 /100WBC Sodium 138 (135-145) mmol/L Potassium 3.9 (3.5-5.0) mmol/L Chloride 105 (101-111) mmol/L Carbon Dioxide 26 (21-32) mmol/L Anion Gap 7.0 (6-13) BUN 15 (6-20) mg/dL Creatinine 0.7 (0.4-1.0) mg/dL Estimated GFR (MDRD) 84 L (>89) Glucose 130 H (70-100) mg/dL Calcium 7.9 L (8.5-10.3) mg/dL Total Bilirubin 0.8 (0.2-1.0) mg/dL AST 40 (10-42) IU/L ALT 51 (10-60) IU/L Alkaline Phosphatase 55 (42-121) IU/L Total Protein 6.1 L (6.7-8.2) g/dL Albumin 2.9 L (3.2-5.5) g/dL Globulin 3.2 (2.1-4.2) g/dL Albumin/Globulin Ratio 0.9 L (1.0-2.2) - Current Medications Current Medications: Current Medications Generic Name Dose Route Start Last Admin Trade Name Freq PRN Reason Stop Dose Admin Enoxaparin Sodium 40 mg 10/12/18 20:00 10/14/18 09:21 Lovenox SUBQ Not Given DAILY AUBREY Ciprofloxacin 200 mls @ 200 mls/hr 10/12/18 20:00 10/14/18 09:20 Cipro 400 Mg/200 Ml IV 200 mls/hr Q12H AUBREY Administration Acetaminophen 100 mls @ 400 mls/hr 10/12/18 19:10 10/12/18 20:41 Ofirmev IV Infused Q6HR PRN Infusion PAIN Metronidazole 500 mg in 100 mls @ 100 mls/hr 10/12/18 22:00 10/14/18 05:04 Flagyl 500 Mg/100 Ml IV Infused Q6H AUBREY Infusion Ketorolac Tromethamine 15 mg 10/13/18 10:43 10/14/18 04:16 Toradol Inj (15mg) IVP 10/18/18 10:42 15 mg Q6HR PRN Administration PAIN Sodium Chloride 10 ml 10/13/18 01:00 10/14/18 09:21 Normal Saline Flush 0.9% IVP 10 ml 0100,0900,1700 AUBREY Administration Sodium Chloride 10 ml 10/12/18 19:10 10/14/18 05:15 Normal Saline Flush 0.9% IVP 10 ml PRN PRN Administration NEEDED PER PROVIDER ORDERS - Physical Exam Wound/Incisions: positive: Healing well, No drainage General Appearance: positive: No acute distress Eyes Bilateral: positive: Normal inspection, No scleral icterus ENT: positive: ENT inspection nml Neck: positive: Nml inspection, No JVD Respiratory: positive: Chest non-tender, No respiratory distress, Breath sounds nml. negative: Wheezes, Rales, Rhonchi Cardiovascular: positive: Regular rate & rhythm Abdomen: positive: Non-tender (minimal expected periincisional tenderness), No distention, Other (incisions healing well) Skin: positive: Color nml, Warm, Dry. negative: Cyanosis Extremities: positive: No pedal edema. negative: Calf tenderness Neurologic/Psychiatric: positive: Oriented x3 ABX Reporting Has patient been on IV antibiotics over the past 48 hours?: No Impression/Plan - Problem List Problem List: Acute gangrenous calculous cholecystitis, clinically doing well PO Day #1 Plan: d/c home on po cipro/metronidazole x 3 more days, usual precautions, non narcotic analgesics; RTO 1-2 weeks.
--- NOTE | 2018-10-14 09:48 | Discharge Plan ---
Discharge Plan Disposition: 01 Home, Self Care Condition: Good Diet: Regular Activity Restrictions: see OPS discharge instruction sheet Shower Restrictions: No Driving Restrictions: Yes (no driving for 1 week) Weight Bearing: Full Weight Additional Instructions or Follow Up instructions: follow up with Dr. Yap in 1-2 weeks; call [phone] for an appointment No Smoking: If you smoke, Please STOP! Call for help. Follow-up with: Yanique Estrella ARNP, [facility] [Primary Care Provider] - 2 Weeks
--- NOTE | 2018-10-14 09:50 | DISCHARGE SUMMARY ---
"Discharge Summary Admit Date: 10/12/18 Discharge Date: 10/14/18 Discharging Provider: Dr. Denzel Yap Primary Care Provider: Yanique Estrella Code Status: Attempt Resuscitation Condition at Discharge: Good Discharge Disposition: Home, Self Care Discharge Facility Name: [facility] - DIAGNOSES Admission Diagnoses: Acute calculous cholecystitis Discharge Diagnoses with Status of Each Condition: Acute gangrenous calculous cholecystitis, resolving s/p laparoscopic cholecystectomy - HPI History of Present Illness: See surgical consultation/H&P by Dr. Denzel Yap - CONSULTS | PROCEDURES Procedures: Laparoscopic cholecystectomy 10/13/2018 - HOSPITAL COURSE Hospital Course: Patient was admitted on the evening of October 12, treated with intravenous fluids, parenteral antibiotic therapy, and analgesics, following which she was taken to the OR on the following morning, 10/13/2018 where lap kristie was performed without complications. See operative report for details. Postop course has been unremarkable, with the patient now with resolution of preop sx, afebrile, stable vs, tolerating a regular diet, ambulating and voiding without difficulty. - ALLERGIES Allergies/Adverse Reactions: Allergies Allergy/AdvReac Type Severity Reaction Status Date / Time Sulfa (Sulfonamide Allergy Hives Verified 10/12/18 16:52 Antibiotics) Penicillins AdvReac Unknown Verified 10/12/18 16:52 - MEDICATIONS Home Medications: Ambulatory Orders Medication Instructions Recorded Confirmed Alendronate [Fosamax] 70 mg PO OAW 10/12/18 10/13/18 Biotin 5,000 mcg PO DAILY 10/12/18 10/13/18 Calcium Citrate 200 mg PO DAILY 10/12/18 10/13/18 Cholecalciferol (Vitamin D3) 2,000 unit PO DAILY 10/12/18 10/13/18 [Vitamin D] Glucosamine/D3/Boswellia Rena 1 tab PO DAILY 10/12/18 10/13/18 [Osteo Bi-Flex Tablet] Brule-3/Dha/Epa/Fish Oil [Fish Oil 1,000 mg PO DAILY 10/12/18 10/13/18 1,000 mg Softgel] - PHYSICAL EXAM AT DISCHARGE General Appearance: positive: No acute distress, Alert Eyes Bilateral: positive: No scleral icterus ENT: positive: ENT inspection nml Neck: positive: Nml inspection Respiratory: positive: Chest non-tender, No respiratory distress, Breath sounds nml Abdomen: positive: Non-tender (minimal expected postop incisional tenderness; incisions healing well), No distention Skin: positive: Color nml, Warm, Dry Extremities: positive: No pedal edema. negative: Calf tenderness Neurologic/Psychiatric: positive: Oriented x3 - LABS Result Diagrams: 10/14/18 04:45 10/14/18 04:45 Other Lab Results: LFTs normalizing - FOLLOW UP Follow Up: with Dr. Yap in 1-2 weeks - TIME SPENT Time Spent in Discharge (Minutes): 30"
== END 2018-10-14 11:03 | disposition home or self-care (01) ==
LOC: ED 16:40 → MS2 19:10
PROVIDERS: ADMIT Internal Medicine Gastroenterology; ATTEND Internal Medicine Gastroenterology
PROC: 0FT44ZZ Resection of Gallbladder, Percutaneous Endoscopic Approach (ICD-10-PCS; principal; 2018-10-12)
DX: K80.00 Calculus of gallbladder with acute cholecystitis without obstruction (principal); K82.A1 Gangrene of gallbladder in cholecystitis; K90.49 Malabsorption due to intolerance, not elsewhere classified; E73.9 Lactose intolerance, unspecified
CPT/HCPCS: 36415; 47562; 76705; 80048; 80053; 81001; 83690; 85025; 93005; 96361; 96365; 96366; 96367; 96368; 96372; 96375; 96376; 99283; 99284; G0378; J0131; J1170; J1650; J7120; Q9961; 81003; 87070; 87086; 87205

== ENCOUNTER 2019-01-11 15:14 | Outpatient (CLI) | payer BC ==
[2019-01-11 13:09] LABS: BASOPHILS # (AUTO) 0.1 10^3/uL (0.0-0.1); EOSINOPHILS # (AUTO) 0.3 10^3/uL (0.0-0.7); HGB - HEMOGLOBIN 13.5 g/dL (12.0-16.0); LYMPHOCYTES # (AUTO) 2.3 10^3/uL (1.5-3.5); LYMPHOCYTES % (AUTO) 36.4 %; MEAN CORPUSCULAR HEMOGLOBIN 29.3 pg (27.0-31.0); MEAN CORPUSCULAR HGB CONC 32.8 g/dL (32.0-36.0); MEAN CORPUSCULAR VOLUME 89.5 fL (81.0-99.0); MEAN PLATELET VOLUME 12.3 fL (7.9-10.8); MONOCYTES # (AUTO) 0.5 10^3/uL (0.0-1.0); MONOCYTES % (AUTO) 7.4 %; NEUTROPHILS # (AUTO) 3.3 10^3/uL (1.5-6.6); NEUTROPHILS % (AUTO) 51.2 %; PLT - PLATELET COUNT 127 10^3/uL (130-450); RED CELL DISTRIBUTION WIDTH 13.3 % (12.0-15.0); WHITE BLOOD COUNT 6.4 x10^3/uL (4.8-10.8)
[2019-01-11 13:30] LABS: ALBUMIN 4.1 g/dL (3.2-5.5); ALBUMIN/GLOBULIN RATIO 1.1 (1.0-2.2); ALKALINE PHOSPHATASE 66 IU/L (42-121); ALT ALANINE AMINOTRANSFERASE 57 IU/L (10-60); AST ASPARTATE AMINOTRANSFERASE 56 IU/L (10-42); BILIRUBIN,TOTAL 0.9 mg/dL (0.2-1.0); BUN - BLOOD UREA NITROGEN 10 mg/dL (6-20); CALCIUM 8.9 mg/dL (8.5-10.3); CARBON DIOXIDE - CO2 28 mmol/L (21-32); CHLORIDE 102 mmol/L (101-111); CHOL/HDL RATIO 4.4 (<4.4); CHOLESTEROL 180 mg/dL; CREATININE 0.5 mg/dL (0.4-1.0); GFR - MDRD 124 (>89); GLUCOSE 97 mg/dL (70-100); HDL CHOLESTEROL 41 mg/dL; LDL CHOLESTEROL,CALCULATED 120 mg/dL; LDL/HDL RATIO 2.9 (<4.4); SODIUM 138 mmol/L (135-145); TOTAL PROTEIN 7.7 g/dL (6.7-8.2); VLDL CHOLESTEROL 19 mg/dL
--- NOTE | 2019-01-11 16:52 | DEXA Report ---
Reason: BONE DISORDER Procedure Date: 01/11/2019 Accession Number: [id number] / [id number] Procedure: DEX - Dexa Spine and/or Hip CPT Code: FULL RESULT: EXAM: Dexa Spine and/or Hip DATE: 01/11/2019 3:43 PM CLINICAL HISTORY: BONE DISORDER TECHNIQUE: Dual energy x-ray absorptiometry (DXA) was performed on a [employer] System. Regions measured are the AP Spine, femoral neck, and if needed forearm. COMPARISON: None. In accordance with the International Society for Clinical Densitometry (ISCD) guidelines, data from previous exams may be reanalyzed using current recommendations and techniques. This is done to allow a more accurate basis for comparison with the current study. FINDINGS: The data for the lumbar spine is as follows: BMD (g/cm/cm) T-SCORE Z-SCORE REGION L1 0.836 -2.4 -0.7 L2 0.887 -2.6 -0.9 L3 0.921 -2.3 -0.6 L4 0.906 -2.4 -0.7 TOTAL 0.891 -2.4 -0.7 NOTE: All evaluable vertebrae are used for classification The data for the hip is as follows: BMD (g/cm/cm) T-SCORE Z-SCORE REGION Neck 0.638 -2.9 -1.3 TOTAL 0.592 -3.3 -2.0 NOTE: The femoral neck or total proximal femur, whichever is lowest, is used for classification. IMPRESSION: THE WHO CLASSIFICATION BASED ON THE INTERNATIONAL REFERENCE STANDARD IS OSTEOPOROSIS. THE FRACTURE RISK IS HIGH. RECOMMENDATION: Patients with diagnosis of osteoporosis or osteopenia should have regular bone mineral density assessment. For those eligible for Medicare, routine testing is allowed once every 2 years. Testing frequency can be increased for patients who have rapidly progressing disease or for those who are receiving medical therapy to restore bone mass. COMMENT: World Health Organization (WHO) definitions for osteoporosis and osteopenia: NORMAL BMD: T-score at -1.0 or higher, fracture risk is low OSTEOPENIA BMD: T-score between -1.0 and -2.5, fracture risk is increased. OSTEOPOROSIS BMD: T-score at -2.5 or lower, fracture risk is high. National Osteoporosis Foundation recommends: 1. Obtain adequate dietary calcium (at least 1200 mg per day) and vitamin D (400-800 international units per day). 2. Participate, as appropriate, in regular weightbearing and muscle-strengthening exercise. 3. Avoid tobacco use and reduce alcohol and caffeine intake. 4. For more detailed information see the website at www.NOF.org.
== END 2019-01-11 15:15 | disposition home or self-care (01) ==
LOC: DI 15:14
PROVIDERS: ATTEND Nurse Practitioner
DX: Z00.00 Encounter for general adult medical examination without abnormal findings (principal); Z13.29 Encounter for screening for other suspected endocrine disorder; Z13.220 Encounter for screening for lipoid disorders; M81.0 Age-related osteoporosis without current pathological fracture
CPT/HCPCS: 36415; 77080; 80053; 80061; 83721; 84443; 85025

== ENCOUNTER 2019-02-08 15:07 | Outpatient (CLI) | payer BC ==
--- NOTE | 2019-02-16 08:36 | Mammography Report ---
Reason: SCREENING MAMMO Procedure Date: 02/08/2019 Accession Number: [id number] / [id number] Procedure: MGN - Screening Mammo Dig Bilat CPT Code: FULL RESULT: EXAM: Screening Mammo Dig Bilat DATE: 02/08/2019 3:32 PM CLINICAL HISTORY: Screening encounter. History of benign breast biopsy, right breast 1973, left breast 1975, and right breast 2001. TECHNIQUE: (B) - Bilateral CC and MLO views were obtained. COMPARISON: 12/20/2017 and 08/09/2016. PARENCHYMAL PATTERN: (D) - The breast(s) demonstrate(s) heterogeneously dense fibroglandular parenchyma. FINDINGS: Postsurgical changes are seen bilaterally. There is a right breast biopsy clip. There are coarse typically benign calcifications. Additionally, long-standing pattern of fine calcifications diffusely demonstrates no concerning interval change. There are no suspicious masses, calcifications, or areas of distortion. IMPRESSION: Benign findings. BI-RADS category 2. RECOMMENDATION: (ANNUAL) - Recommend routine annual screening mammography. BI-RADS CATEGORY: (2) - Benign Findings. STANDARD QUALIFYING STATEMENTS: 1. This examination was not reviewed with the aid of Computer-Aided Detection (CAD). 2. A negative or benign imaging report should not preclude biopsy if clinically suspicious findings are present. 3. Dense breasts may obscure an underlying neoplasm. 4. This examination was reviewed without the aid of 3D breast imaging (tomosynthesis).
== END 2019-02-08 15:08 | disposition home or self-care (01) ==
LOC: DI.N 15:07
DX: Z12.31 Encounter for screening mammogram for malignant neoplasm of breast (principal)
CPT/HCPCS: 77067

== ENCOUNTER 2019-05-21 08:00 | Outpatient (CLI) | payer BC ==
[2019-05-21 19:00] LABS: ALBUMIN 4.6 g/dL (3.2-5.5); ALBUMIN/GLOBULIN RATIO 1.2 (1.0-2.2); BILIRUBIN,TOTAL 0.9 mg/dL (0.2-1.0); CALCIUM 9.6 mg/dL (8.5-10.3); CREATININE 0.7 mg/dL (0.4-1.0); TOTAL PROTEIN 8.3 g/dL (6.7-8.2)
== END 2019-05-21 23:59 | disposition home or self-care (01) ==
LOC: LAB.WCP 08:00
PROVIDERS: ATTEND Nurse Practitioner
DX: R74.8 Abnormal levels of other serum enzymes (principal)
CPT/HCPCS: 36415; 80053

== ENCOUNTER 2019-08-16 10:18 | Outpatient (CLI) | payer BC ==
[2019-08-16 13:25] LABS: BASOPHILS % (AUTO) 0.6 %; EOSINOPHILS # (AUTO) 0.1 10^3/uL (0.0-0.7); EOSINOPHILS % (AUTO) 1.1 %; HGB - HEMOGLOBIN 14.3 g/dL (12.0-16.0); LYMPHOCYTES # (AUTO) 2.5 10^3/uL (1.5-3.5); LYMPHOCYTES % (AUTO) 39.2 %; MEAN CORPUSCULAR HEMOGLOBIN 30.4 pg (27.0-31.0); MEAN CORPUSCULAR HGB CONC 32.9 g/dL (32.0-36.0); MEAN CORPUSCULAR VOLUME 92.1 fL (81.0-99.0); MEAN PLATELET VOLUME 13.7 fL (7.9-10.8); MONOCYTES # (AUTO) 0.6 10^3/uL (0.0-1.0); MONOCYTES % (AUTO) 8.7 %; NEUTROPHILS # (AUTO) 3.2 10^3/uL (1.5-6.6); NEUTROPHILS % (AUTO) 50.1 %; PLT - PLATELET COUNT 143 10^3/uL (130-450); RED BLOOD COUNT 4.71 10^6/uL (4.20-5.40); RED CELL DISTRIBUTION WIDTH 12.7 % (12.0-15.0); WHITE BLOOD COUNT 6.3 x10^3/uL (4.8-10.8)
[2019-08-16 13:42] LABS: ALBUMIN 4.6 g/dL (3.2-5.5); ALBUMIN/GLOBULIN RATIO 1.3 (1.0-2.2); ALKALINE PHOSPHATASE 53 IU/L (42-121); ALT ALANINE AMINOTRANSFERASE 21 IU/L (10-60); AST ASPARTATE AMINOTRANSFERASE 27 IU/L (10-42); BILIRUBIN,TOTAL 0.7 mg/dL (0.2-1.0); BUN - BLOOD UREA NITROGEN 10 mg/dL (6-20); CALCIUM 9.6 mg/dL (8.5-10.3); CARBON DIOXIDE - CO2 30 mmol/L (21-32); CHLORIDE 105 mmol/L (101-111); CREATININE 0.6 mg/dL (0.4-1.0); GFR - MDRD 100 (>89); GLUCOSE 88 mg/dL (70-100); SODIUM 141 mmol/L (135-145); TOTAL PROTEIN 8.1 g/dL (6.7-8.2)
[2019-08-16 14:01] LABS: CRP - C-REACTIVE PROTEIN < 1.0 mg/dL (0-1.0)
== END 2019-08-16 23:59 | disposition home or self-care (01) ==
LOC: LAB.WCP 10:18
PROVIDERS: ATTEND Family Medicine
DX: I10 Essential (primary) hypertension (principal); R42 Dizziness and giddiness; R51 Headache
CPT/HCPCS: 36415; 80053; 85025; 85651; 86140

== ENCOUNTER 2019-08-16 17:22 | Outpatient (CLI) | payer BC ==
[2019-08-16] MEDS ORDERED: GADOBUTROL 10 MMOL/10 ML VIAL IVP ONE (18:02)
--- NOTE | 2019-08-17 04:49 | MRI Report ---
Reason: HEADACHE, DIZZINESS Procedure Date: 08/16/2019 Accession Number: [id number] / [id number] Procedure: MRI - Brain W/WO CPT Code: Final Report FULL RESULT: EXAM: MRI BRAIN WITHOUT AND WITH CONTRAST EXAM DATE: 08/16/2019 06:21 PM. CLINICAL HISTORY: HEADACHE, DIZZINESS. COMPARISON: None. TECHNIQUE: Multiplanar, multisequence T1-weighted and fluid-sensitive MR sequences of the brain were performed before and after administration of intravenous contrast. Sequences optimized for routine evaluation. Other: None. IV Contrast: 7 cc Gadavist. FINDINGS: Brain Volume: Normal for age. Parenchyma: No acute hemorrhage, mass, or infarct. Several small scattered foci of nonspecific white matter change are present, not prominent for age. No abnormal enhancement. Ventricles/Cisterns: No hydrocephalus. No abnormal extra-axial fluid collection or hemorrhage. Orbits: Symmetric and unremarkable. Sella Turcica: The pituitary gland, cavernous sinuses, suprasellar cistern and optic chiasm are unremarkable. IAC: Symmetric and unremarkable. Vasculature: Normal signal flow void is seen in the major arterial structures at the skull base. The dural sinuses are patent and enhance normally. Sinuses: No acute sinus disease. Bones: No focal pathologic appearing marrow signal changes. Other: None. IMPRESSION: 1. No acute intracranial process. No abnormal enhancement. RADIA
== END 2019-08-16 17:23 | disposition home or self-care (01) ==
LOC: DI 17:22
PROVIDERS: ATTEND Family Medicine
DX: R51 Headache (principal); R42 Dizziness and giddiness; I10 Essential (primary) hypertension
CPT/HCPCS: 36415; 70553; 80053; 85025; 85651; 86140

== ENCOUNTER 2020-04-02 15:24 | Outpatient (CLI) | payer BC ==
--- NOTE | 2020-04-03 11:06 | Mammography Report ---
BILATERAL DIGITAL SCREENING MAMMOGRAM 3D/2D: 04/02/2020 CLINICAL: Routine screening. Routine screening. Comparison is made to exams dated: 02/08/2019 mammogram and 12/20/2017 mammogram - [facility]. The tissue of both breasts is heterogeneously dense. This may lower the sensitivity of johnathan mography. There is a biopsy clip in the right breast. No significant masses, calcifications, or other findings are seen in either breast. There has been no significant interval change. IMPRESSION: NEGATIVE There is no mammographic evidence of malignancy. A 1 year screening mammogram is recommended. This exam was interpreted at Station ID: [id number]. NOTE: For mammograms, a report in lay terms will be sent to the patient. Approximately 15% of breast malignancies will not be visualized mammographically. In the management of a palpable breast mass, a negative mammogram must not discourage biopsy of a clinically suspicious lesion. Electronically Signed By: Syeda frazier/penrad:04/02/2020 17:54:04 ACR BI-RADS Category 1: Negative 3341F PARENCHYMAL PATTERN: (D) - The breast(s) demonstrate(s) heterogeneously dense fibroglandular viki hernández. BI-RADS CATEGORY: (1) - 1 RECOMMENDATION: (ANNUAL) - Recommend routine annual screening mammography. [id number] 1 year screening LATERALITY: (B)
== END 2020-04-02 15:25 | disposition home or self-care (01) ==
LOC: DI 15:24
PROVIDERS: ATTEND Nurse Practitioner
DX: Z12.31 Encounter for screening mammogram for malignant neoplasm of breast (principal)
CPT/HCPCS: 77063; 77067

== ENCOUNTER 2021-01-02 11:00 | Outpatient (CLI) | payer MEDICARE ==
--- NOTE | 2021-01-02 16:44 | DEXA Report ---
PROCEDURE: Dexa Spine and/or Hip INDICATIONS: BONE DISORDER TECHNIQUE: Dual energy x-ray absorptiometry (DXA) was performed on a [employer] System. Regions measur ed are the AP Spine, femoral neck, and if needed forearm. COMPARISON: 01/11/2019. FINDINGS: Lumbar Spine: Bone Mineral Density 0.920 g/cm/cm,T score -2.2, osteopenia Left Hip: Bone Mineral Density 0.587 g/cm/cm,T score -3.3, osteoporosis Left Femoral Neck: Bone Mineral Density 0.616 g/cm/cm, T score -3.0, osteoporosis (T score greater or equal to -1.0: NORMAL) (T score from -1.1 to -2.4: OSTEOPENIA) (T score less than or equal to -2.5 to: OSTEOPOROSIS) Impression: Osteoporosis. Bone marrow density has decreased 0.8% in the interval since prior exam obt ained 01/11/2019. Patients with diagnosis of osteoporosis or osteopenia should have regular bone mineral density assess ment. For those eligible for Medicare, routine testing is allowed once every 2 years. Testing frequ ency can be increased for patients who have rapidly progressing disease or for those who are receivin g medical therapy to restore bone mass. Reviewed by: Bonnie Pulliam MD, PhD on 01/02/2021 4:43 PM PDT Approved by: Bonnie Pulliam MD, PhD on 01/02/2021 4:43 PM PDT Station ID: [id number]
== END 2021-01-02 11:01 | disposition home or self-care (01) ==
LOC: DI 11:00
PROVIDERS: ATTEND Family Medicine
DX: M81.8 Other osteoporosis without current pathological fracture (principal)

== ENCOUNTER 2021-01-20 07:14 | Outpatient (CLI) | payer MEDICARE ==
[2021-01-20 11:40] LABS: BASOPHILS # (AUTO) 0.1 10^3/uL (0.0-0.1); BASOPHILS % (AUTO) 0.7 %; EOSINOPHILS # (AUTO) 0.1 10^3/uL (0.0-0.7); EOSINOPHILS % (AUTO) 1.6 %; HCT - HEMATOCRIT 43.8 % (37.0-47.0); HGB - HEMOGLOBIN 14.5 g/dL (12.0-16.0); LYMPHOCYTES # (AUTO) 3.4 10^3/uL (1.5-3.5); LYMPHOCYTES % (AUTO) 45.8 %; MEAN CORPUSCULAR HEMOGLOBIN 29.5 pg (27.0-31.0); MEAN CORPUSCULAR HGB CONC 33.1 g/dL (32.0-36.0); MONOCYTES # (AUTO) 0.6 10^3/uL (0.0-1.0); NEUTROPHILS # (AUTO) 3.2 10^3/uL (1.5-6.6); NEUTROPHILS % (AUTO) 43.8 %; PLT - PLATELET COUNT 140 10^3/uL (130-450); RED BLOOD COUNT 4.92 10^6/uL (4.20-5.40); RED CELL DISTRIBUTION WIDTH 12.5 % (12.0-15.0); WHITE BLOOD COUNT 7.3 x10^3/uL (4.8-10.8)
[2021-01-20 12:37] LABS: ALBUMIN 4.4 g/dL (3.2-5.5); ALBUMIN/GLOBULIN RATIO 1.4 (1.0-2.2); ALKALINE PHOSPHATASE 59 IU/L (42-121); ALT ALANINE AMINOTRANSFERASE 28 IU/L (10-60); AST ASPARTATE AMINOTRANSFERASE 27 IU/L (10-42); BILIRUBIN,TOTAL 0.9 mg/dL (0.2-1.0); BUN - BLOOD UREA NITROGEN 15 mg/dL (6-20); CALCIUM 9.6 mg/dL (8.5-10.3); CARBON DIOXIDE - CO2 26 mmol/L (21-32); CHLORIDE 104 mmol/L (101-111); CHOL/HDL RATIO 5.1 (<4.4); CHOLESTEROL 251 mg/dL; CREATININE 0.7 mg/dL (0.4-1.0); GFR - MDRD 84 (>89); GLUCOSE 94 mg/dL (70-100); HDL CHOLESTEROL 49 mg/dL; LDL CHOLESTEROL,CALCULATED 168 mg/dL; LDL/HDL RATIO 3.4 (<4.4); POTASSIUM 3.9 mmol/L (3.5-5.0); SODIUM 141 mmol/L (135-145); TOTAL PROTEIN 7.6 g/dL (6.7-8.2); TRIGLYCERIDES 172 mg/dL; VLDL CHOLESTEROL 34 mg/dL
[2021-01-20 12:45] LABS: THYROID STIMULATING HORMONE 5.44 uIU/mL (0.34-5.60)
== END 2021-01-20 23:59 | disposition home or self-care (01) ==
LOC: LAB.WCP 07:14
PROVIDERS: ATTEND Family Medicine
DX: Z00.00 Encounter for general adult medical examination without abnormal findings (principal); I10 Essential (primary) hypertension; R74.8 Abnormal levels of other serum enzymes; M89.9 Disorder of bone, unspecified; R42 Dizziness and giddiness
CPT/HCPCS: 36415; 80053; 80061; 83721; 84443; 85025

== ENCOUNTER 2021-04-22 08:50 | Outpatient (CLI) | payer MEDICARE ==
--- NOTE | 2021-04-23 12:50 | Mammography Report ---
BILATERAL DIGITAL SCREENING MAMMOGRAM 3D/2D: 04/22/2021 CLINICAL: Routine screening. Comparison is made to exams dated: 04/02/2020 mammogram, 02/08/2019 mammogram, 12/27/2017 ultrasound, mammogram, and 12/20/2017 mammogram - [facility]. The tissue of both breast s is heterogeneously dense. This may lower the sensitivity of mammography. There are benign calcifications in both breasts. There also is a biopsy clip in the right breast. No significant masses, calcifications, or other findings are seen in either breast. There has been no significant interval change. IMPRESSION: BENIGN There is no mammographic evidence of malignancy. A 1 year screening mammogram is recommended. This exam was interpreted at Station ID: [id number]. NOTE: For mammograms, a report in lay terms will be sent to the patient. Approximately 15% of breast malignancies will not be visualized mammographically. In the management of a palpable breast mass, a negative mammogram must not discourage biopsy of a clinically suspicious lesion. Electronically Signed By: Nish astudillo/enid:04/22/2021 10:19:05 ACR BI-RADS Category 2: Benign Finding(s) 3342F PARENCHYMAL PATTERN: (D) - The breast(s) demonstrate(s) heterogeneously dense fibroglandular viki hernández. BI-RADS CATEGORY: (2) - 2 RECOMMENDATION: (ANNUAL) - Recommend routine annual screening mammography. [id number] 1 year screening LATERALITY: (B)
== END 2021-04-22 08:51 | disposition home or self-care (01) ==
LOC: DI 08:50
DX: Z12.31 Encounter for screening mammogram for malignant neoplasm of breast (principal)

== ENCOUNTER 2022-08-11 14:31 | Outpatient (CLI) | payer MEDICARE ==
--- NOTE | 2022-08-12 10:28 | Mammography Report ---
BILATERAL DIGITAL SCREENING MAMMOGRAM 3D/2D: 08/11/2022 CLINICAL: Routine screening. Comparison is made to exams dated: 04/22/2021 mammogram, 04/02/2020 mammogram, 02/08/2019 mammogram, 12/09 mammogram, and 12/20/2017 mammogram - [facility]. Both breasts are heterogeneously dense, which may obscure small masses (category c / 51-75% glandular tissue). There are benign calcifications in both breasts. There also is a biopsy clip in the right breast. No significant masses, calcifications, or other findings are seen in either breast. There has been no significant interval change. IMPRESSION: BENIGN There is no mammographic evidence of malignancy. A 1 year screening mammogram is recommended. Based on the Tyrer Cuzick model (a risk assessment model) the patients lifetime risk is 7.4% and her 10 year risk is 4.1%. According to the ACR, ACS, and NCCN guidelines, an annual breast MRI exam milton g with mammogram is recommended if the patients lifetime risk is 20% or greater. This exam was interpreted at Station ID: [id number]. NOTE: For mammograms, a report in lay terms will be sent to the patient. Approximately 15% of breast malignancies will not be visualized mammographically. In the management of a palpable breast mass, a negative mammogram must not discourage biopsy of a clinically suspicious lesion. Electronically Signed By: Marilyn beyer/enid:08/11/2022 17:26:48 ACR BI-RADS Category 2: Benign Finding(s) 3342F PARENCHYMAL PATTERN: (D) - The breast(s) demonstrate(s) heterogeneously dense fibroglandular viki hernández. BI-RADS CATEGORY: (2) - 2 RECOMMENDATION: (ANNUAL) - Recommend routine annual screening mammography. [id number] 1 year screening LATERALITY: (B)
== END 2022-08-11 14:32 | disposition home or self-care (01) ==
LOC: DI 14:31
PROVIDERS: ATTEND Physician Assistant
DX: Z12.31 Encounter for screening mammogram for malignant neoplasm of breast (principal)

== ENCOUNTER 2022-12-16 07:21 | Outpatient (CLI) | payer MEDICARE ==
[2022-12-16 12:46] LABS: ALBUMIN 4.2 g/dL (3.2-5.5); ALBUMIN/GLOBULIN RATIO 1.3 (1.0-2.2); ALKALINE PHOSPHATASE 69 IU/L (42-121); ALT ALANINE AMINOTRANSFERASE 31 IU/L (10-60); AST ASPARTATE AMINOTRANSFERASE 30 IU/L (10-42); BILIRUBIN,TOTAL 0.6 mg/dL (0.2-1.0); BUN - BLOOD UREA NITROGEN 14 mg/dL (6-20); CALCIUM 9.8 mg/dL (8.5-10.3); CARBON DIOXIDE - CO2 30 mmol/L (21-32); CHLORIDE 107 mmol/L (101-111); CHOL/HDL RATIO 3.2 (<4.4); CHOLESTEROL 159 mg/dL; CREATININE 0.6 mg/dL (0.4-1.0); GFR - MDRD 99 (>89); GLUCOSE 112 mg/dL (70-100); HDL CHOLESTEROL 49 mg/dL; LDL CHOLESTEROL,CALCULATED 91 mg/dL; LDL/HDL RATIO 1.9 (<4.4); POTASSIUM 4.2 mmol/L (3.5-5.0); SODIUM 144 mmol/L (135-145); TOTAL PROTEIN 7.4 g/dL (6.7-8.2); TRIGLYCERIDES 94 mg/dL; VLDL CHOLESTEROL 19 mg/dL
[2022-12-16 20:33] LABS: ESTIMATED AVERAGE GLUCOSE 123 mg/dL (70-100); HEMOGLOBIN A1c% 5.9 % (4.27-6.07)
== END 2022-12-16 07:22 | disposition home or self-care (01) ==
LOC: LAB.N 07:21
PROVIDERS: ATTEND Physician Assistant
DX: E78.5 Hyperlipidemia, unspecified (principal); R73.01 Impaired fasting glucose
CPT/HCPCS: 36415; 80053; 80061; 83036; 83721

== ENCOUNTER 2024-01-26 15:19 | Outpatient (CLI) | payer MEDICARE ==
--- NOTE | 2024-01-30 09:09 | Mammography Report ---
BILATERAL DIGITAL SCREENING MAMMOGRAM 3D/2D: 01/26/2024 CLINICAL: Routine screening. Comparison is made to exams dated: 08/11/2022 mammogram, 04/22/2021 mammogram, and 04/02/2020 mammogram - [facility]. Both breasts are heterogeneously dense, which may obscure small masses (category c / 51-75% glandular tissue). There are benign calcifications in both breasts. There also is a biopsy clip in the right breast. No significant masses, calcifications, or other findings are seen in either breast. There has been no significant interval change. IMPRESSION: BENIGN There is no mammographic evidence of malignancy. A 1 year screening mammogram is recommended. Based on the Tyrer Cuzick model (a risk assessment model) the patient's lifetime risk is 7.0% and her 10 year risk is 4.1%. According to the ACR, ACS, and NCCN guidelines, an annual breast MRI exam milton g with mammogram is recommended if the patient's lifetime risk is 20% or greater. This exam was interpreted at Station ID: [id number]. NOTE: For mammograms, a report in lay terms will be sent to the patient. Approximately 15% of breast malignancies will not be visualized mammographically. In the management of a palpable breast mass, a negative mammogram must not discourage biopsy of a clinically suspicious lesion. Electronically Signed By: Chapin lawrence/enid:01/27/2024 09:08:17 letter sent: No_Letter ACR BI-RADS Category 2: Benign Finding(s) 3342F PARENCHYMAL PATTERN: (D) - The breast(s) demonstrate(s) heterogeneously dense fibroglandular viki hernández. BI-RADS CATEGORY: (2) - 2 RECOMMENDATION: (ANNUAL) - Recommend routine annual screening mammography. [id number] 1 year screening LATERALITY: (B)
== END 2024-01-26 15:20 | disposition home or self-care (01) ==
LOC: DI 15:19
DX: Z12.31 Encounter for screening mammogram for malignant neoplasm of breast (principal); R92.333 Mammographic heterogeneous density, bilateral breasts; R92.1 Mammographic calcification found on diagnostic imaging of breast

== ENCOUNTER 2024-03-20 15:30 | Outpatient (CLI) | payer MEDICARE ==
--- NOTE | 2024-03-20 16:12 | DEXA Report ---
PROCEDURE: Dexa Spine and/or Hip INDICATIONS: OSTEOPORSIS TECHNIQUE: Dual energy x-ray absorptiometry (DXA) was performed on a E[employer] System. Regions measur ed are the AP Spine, femoral neck, and if needed forearm. COMPARISON: 01/02/2021 FINDINGS: Lumbar Spine: Bone Mineral Density: 0.91 g/cm/cm,T score: -2.2. Previously -2.2 Left Femoral Neck: Bone Mineral Density: 0.59 g/cm/cm, T score: -3.2, previously -3. Left Hip: Bone Mineral Density: 0.61 g/cm/cm,T score: -3.1, previously -3.3. (T score greater or equal to -1.0: NORMAL) (T score from -1.1 to -2.4: OSTEOPENIA) (T score less than or equal to -2.5 to: OSTEOPOROSIS) Impression: By WHO criteria, this patient has osteoporosis. Similar T-scores compared to prior imaging. Patients with diagnosis of osteoporosis or osteopenia should have regular bone mineral density assess ment. For those eligible for Medicare, routine testing is allowed once every 2 years. Testing frequ ency can be increased for patients who have rapidly progressing disease or for those who are receivin g medical therapy to restore bone mass. Reviewed by: Gerson Ruiz MD on 03/20/2024 4:11 PM PDT Approved by: Gerson Ruiz MD on 03/20/2024 4:11 PM PDT Station ID: [id number]
== END 2024-03-20 15:31 | disposition home or self-care (01) ==
LOC: DI 15:30
PROVIDERS: ATTEND Physician Assistant
DX: M81.0 Age-related osteoporosis without current pathological fracture (principal)